=== PATIENT | female | born 1990 | race American Indian/Alaskan Native ===

== ENCOUNTER 2016-07-11 12:51 | Emergency (ER) | payer SELFPAY ==
[2016-07-11 15:08] LABS: Bacteria,Urine 2+ /HPF (Negative); Bilirubin,Urine NEG (Negative); Blood,Urine SM (Negative); Ketones,Urine NEG (Negative); Leukocyte Esterase,Urine TR (Negative); Mucus,Urine 1+ /HPF; Nitrite,Urine NEG (Negative); Protein,Urine <15 mg/dL mg/dL (Negative); Urobilinogen,Urine < 2.0 mg/dL (<2.0)
[2016-07-11 17:32] LABS: Bacteria,Urine 1+ /HPF (Negative); Bilirubin,Urine NEG (Negative); Blood,Urine SM (Negative); Ketones,Urine NEG (Negative); Leukocyte Esterase,Urine NEG (Negative); Mucus,Urine FEW /HPF; Nitrite,Urine NEG (Negative); Protein,Urine <15 mg/dL mg/dL (Negative)
[2016-07-11 17:33] VITALS: BP 107/63
--- NOTE | 2016-07-11 22:50 | Emergency Department Report ---
Entered by TRAVIS RASCON, acting as scribe for TEJA GUTIERREZ PA. ED Female HPI - General Chief complaint: Urogenital-Female Stated complaint: VAGINAL DISCHARGE Source: patient, family Mode of arrival: Ambulatory Limitations: No Limitations - History of Present Illness Initial comments: 26 year old female with no significant PMHx presents to the ED c/o white vaginal discharge with a strong odor that began 3 days ago. Patient states that she might have been exposed to a STD. Associated symptoms include vaginal itching and dysuria, but she denies urgency, frequency, vaginal bleeding, fever , chills, nausea, vomiting, and abdominal pain. Notes she had unprotected sex 3 days ago. LMP 06/11/2016. NKDA. GARCIA Complaint: vaginal discharge (white with strong odor), possible STD Onset/Timin -: days(s) Severity: mild Severity scale (0 -10): 0 Consistency: constant Improves with: none Are you Now?: No Last Menstrual Period: 06/11/16 EDC: 03/18/17 Associated Symptoms: denies other symptoms, vaginal discharge (with strong odor) . denies: vaginal bleeding, abdominal pain, nausea/vomiting, fever/chills, headaches, loss of appetite, dysuria, rash, shortness of breath, syncope, weakness - Related Data Sexually active: Yes (last had unprotected sex 3 days ago) Allergies Allergy/AdvReac Type Severity Reaction Status Date / Time No Known Allergies Allergy Unverified 07/11/16 13:06 ED Review of Systems Comment: All other systems reviewed and negative Constitutional: denies: chills, fever, other (tingling) ENT: denies: throat pain Respiratory: no symptoms reported Cardiovascular: denies: chest pain, palpitations, edema, syncope Gastrointestinal: denies: abdominal pain, nausea, vomiting Genitourinary: discharge (white with strong odor). denies: urgency, dysuria, frequency Musculoskeletal: denies: back pain, arthralgia Skin: denies: rash Neurological: denies: numbness ED Past Medical Hx - Past Medical History Previous Medical History?: No - Surgical History Past Surgical History?: Yes Additional Surgical History: - Family History Family history: hypertension - Social History Smoking Status: Never Smoker Substance Use Type: Alcohol, Marijuana ED Physical Exam - General Limitations: No Limitations General appearance: alert, in no apparent distress - Head Head exam: Present: atraumatic, normocephalic, normal inspection - Eye Eye exam: Present: normal appearance, PERRL, EOMI Pupils: Present: normal accommodation - ENT ENT exam: Present: normal exam, mucous membranes moist - Neck Neck exam: Present: normal inspection, full ROM. Absent: tenderness, lymphadenopathy - Respiratory Respiratory exam: Present: normal lung sounds bilaterally. Absent: respiratory distress, wheezes, rales, rhonchi, chest wall tenderness - Cardiovascular Cardiovascular Exam: Present: regular rate, normal rhythm, normal heart sounds. Absent: systolic murmur, diastolic murmur - GI/Abdominal GI/Abdominal exam: Present: soft, normal bowel sounds. Absent: distended, tenderness, guarding, rebound, rigid - External exam: Present: normal external exam. Absent: erythema, swelling, lesions, lacerations, ecchymosis, bleeding Speculum exam: Present: cervical discharge, foreign body (sponge). Absent: erythema, vaginal discharge, vaginal bleeding, tissue, laceration Bi-manual exam: Absent: cervical motion tendernes, adnexal tenderness, adnexal mass, uterine enlargement, uterine tenderness - Expanded Exam Expanded Female exam: Absent: vaginal laceration, tissue present in vagina, herpetic lesions, vulvar erythema, vulvar tenderness, foreign body External exam: Present: normal Speculum exam: Present: cervical OS closed. Absent: vaginal bleeding, vaginal discharge - Extremities Exam Extremities exam: Present: normal inspection, full ROM, normal capillary refill. Absent: tenderness, pedal edema, joint swelling, calf tenderness - Back Exam Back exam: Present: normal inspection, full ROM. Absent: CVA tenderness (R), CVA tenderness (L), muscle spasm, paraspinal tenderness, vertebral tenderness, rash noted - Neurological Exam Neurological exam: Present: alert, oriented X3, normal gait, reflexes normal. Absent: motor sensory deficit - Psychiatric Psychiatric exam: Present: normal affect, normal mood - Skin Skin exam: Present: warm, dry, intact. Absent: rash ED Course Vital Signs 07/11/16 07/11/16 13:03 17:33 Temperature 98.6 F Pulse Rate 65 60 Respiratory 18 16 Rate Blood Pressure 120/52 Blood Pressure 107/63 [Left] O2 Sat by Pulse 100 97 Oximetry - Reevaluation(s) Reevaluation #1: 04/29/17 17:14 Patient had uneventful stay. See procedure note for foreign body removal. Status post pelvic exam. Urine contaminated. For repeat urinalysis done. Awaiting results of wet prep. GC and chlamydia sent. - Procedure Description Procedures done: Procedure note: Up and pelvic exam, foreign body noted in vaginal vault. 4 x 4 sponge removed from the vaginal area with forceps. Very malodorous. Patient tolerated procedure well ED Medical Decision Making - Lab Data Lab Results 07/11/16 Range/Units 14:33 Urine Color Yellow (Yellow) Urine Turbidity Cloudy (Clear) Urine pH 6.0 (5.0-7.0) Ur Specific [place] 1.021 (1.003-1.030) Urine Protein <15 mg/dl (Negative) mg/dL Urine Glucose (UA) Neg (Negative) mg/dL Urine Ketones Neg (Negative) mg/dL Urine Blood Sm (Negative) Urine Nitrite Neg (Negative) Urine Bilirubin Neg (Negative) Urine Urobilinogen < 2.0 (<2.0) mg/dL Ur Leukocyte Esterase Tr (Negative) Urine WBC (Auto) 6.0 (0.0-6.0) /HPF Urine RBC (Auto) 5.0 (0.0-6.0) /HPF U Epithel Cells (Auto) 21.0 H (0-13.0) /HPF Urine Bacteria (Auto) 2+ (Negative) /HPF Urine Mucus 1+ /HPF Urine HCG, Qual Negative (Negative) Repeat urinalysis done due to contamination of urine. Gonorrhea and Chlamydia pending Second urinalysis still contaminated from foreign body in vaginal area. Wet prep reveal no cells, no yeast or Trichomonas. - Medical Decision Making ED course: Patient here complaining of vaginal odor over 3 days. Also concerned about STD and wanted be tested. Wet prep and GC and chlamydia collected and sent. Urinalysis was contaminated therefore repeat urinalysis collected and sent and results pending. She wants to discharged home. Pelvic exam done and foreign body removed from vaginal vault. See procedure note for details. Patient that this is the source of her vaginal odor. I also discussed with her to avoid foreign body in vagina as this can have negative effect on her body. I discussed with patient that I will call her with her urine results, wet prep results via phone as she cannot wait for results to come back. Patient gave me her cell phone number and I discussed with her call her with a result. Discharged home in stable condition. 2245: Patient called to inform that her wet prep result was negative for bacterial vaginosis, Trichomonas or yeast. GC and chlamydia pending. ED Disposition Clinical Impression: Foreign body in vagina Disposition: DISCHARGED TO HOME OR SELFCARE Is pt being admited?: No Does the pt Need Aspirin: No Condition: Stable Instructions: Vaginal Foreign Body (ED) Additional Instructions: please avoid putting foreign objects in vagina follow up with wrapper and preserver in 3 days avoid douching Referrals: ELA SPARKS MD [Staff Physician] - 07/14/16 Forms: Work/School Release Form(ED) This documentation as recorded by the TARAH silveira JASMINE,accurately reflects the service I personally performed and the decisions made by me,TEJA GUTIERREZ PA.
== END 2016-07-11 17:37 | disposition home or self-care (01) ==
LOC: ED 12:51
DX: S30.854A Superficial foreign body of vagina and vulva, initial encounter (principal); F12.10 Cannabis abuse, uncomplicated; W45.8XXA Other foreign body or object entering through skin, initial encounter; Y93.89 Activity, other specified; Y99.8 Other external cause status; Y92.89 Other specified places as the place of occurrence of the external cause
CPT/HCPCS: 81001; 81025; 87210; 87591